=== PATIENT | female | born 1925 | race Caucasian/White ===

== ENCOUNTER 2016-06-24 20:59 | Emergency (ER) | payer MEDICARE ==
[~2016-06-24] VITALS: Ht 160 cm; Wt 63.5 kg
[~2016-06-24 20:59] MED LIST: /FEXO60TA; /PANT40TA; ACET500C; ACETAMINOPHEN; CALCCHW12; CELE20TA; CELE40TA; DIPHENHYDRAMINE; DONNATAL; FLON0.05; Fish Oil; GAS-X; LEVOXYL; LEVOXYL25 MCG; METO10TA2; PAXI10TA; PAXI20TA; PROT20TA11; THERGRAN; VICO5TAB; XANA0.25; XANA0.5T; ZOCO20TA; [UNRECOGNIZED DRUG - OTHER]; [UNRECOGNIZED DRUG - OTHER]
[2016-06-24] MEDS ORDERED: CARV6.25 PO (21:30)
[2016-06-24] MEDS ORDERED: BUSP10TA PO (21:30)
[2016-06-24] MEDS ORDERED: DICYCLOMINE 10 MG CAP PO ONE (22:45)
[2016-06-24 22:59] LABS: BASO % 0.3 % (0.0-1.0); EOS # 0.2 K/mm3 (0.0-0.50); EOS % 3.2 % (0.0-3.0); LARGE UNSTAINED CELL # 0.3 K/mm3 (0.0-0.4); LARGE UNSTAINED CELL % 4.6 % (0.0-4.0); LYMPH # 2.9 K/mm3 (1.5-4.5); MEAN CORPUSCULAR HEMOGLOBIN 32.1 pg (27.0-33.0); MEAN CORPUSCULAR HGB CONC 33.8 g/dl (32.0-36.5); MEAN CORPUSCULAR VOLUME 94.8 fl (80.0-96.0); MONO # 0.5 K/mm3 (0.0-0.8); MONO % 7.5 % (0.0-5.0); NEUTROPHILS # 2.7 K/mm3 (1.8-7.7); NEUTROPHILS % 42.3 % (36.0-66.0); PLATELET COUNT, AUTOMATED 189 k/mm3 (150-450); RED CELL DISTRIBUTION WIDTH 12.7 % (11.5-14.5); WHITE BLOOD COUNT 6.3 K/mm3 (4.0-10.0)
[2016-06-24] MEDS ORDERED: ONDANSETRON 4MG/2ML VIAL (J2405) IV ONE (23:15)
[2016-06-24] MEDS: MORPHINE 4 MG/ML 1ML SYRINGE IV PRN ×2 (23:22→23:49)
[2016-06-24 23:25] LABS: BILIRUBIN,DIRECT 0.2 MG/DL (0.0-0.2); BILIRUBIN,TOTAL 1.2 MG/DL (0.2-1.0); CALCIUM LEVEL 8.8 MG/DL (8.8-10.2); CREATININE FOR GFR 1.02 MG/DL (0.55-1.02); GLOMERULAR FILTRATION RATE 54.3 (>32); POTASSIUM SERUM 4.1 MEQ/L (3.5-5.1)
[2016-06-24] MEDS ORDERED: LORazepam 2 MG/ML VIAL (J2060) IV STA (23:54)
[2016-06-25] MEDS ORDERED: hydrALAZINE INJ 20 MG/ML VIAL IV ONE
[2016-06-25 00:10] VITALS: BP 220/95
[2016-06-25] MEDS ORDERED: GASTROGRAFIN SOLUTION 30ML PO ONE (00:10)
[2016-06-25] MEDS ORDERED: GASTROGRAFIN SOLUTION 30ML (Q9963) PO ONE (00:40)
[2016-06-25] MEDS ORDERED: ISOVUE-370 76% 100ML VIAL (Q9967) As Ordered ONE (01:36)
--- NOTE | 2016-06-25 02:30 | REPUSA ---
CLINICAL HISTORY: Abdominal pain. TECHNIQUE: Multiple axial, sagittal and coronal CT images were obtained through the abdomen and pelvi s after administration of oral and intravenous contrast material. COMMENTS: The liver is of uniform attenuation without mass or defect. There is moderate biliary ductal dilatati on. The common bile duct measures 1.4 cm. The spleen is normal. The gallbladder is surgically absent. The pancreas is of normal contour and attenuation characteristics. There is no evidence of adrenal m ass. Bilateral simple renal cysts with the largest measuring 5.3 cm on the right side. Thickening of the d istal aspect of the gastric body. Both kidneys demonstrate prompt and equal nephrograms. The kidneys are normal in size, shape and conf iguration. There is no evidence of renal or ureteral mass. No renal or ureteral calculi are identifie d. There is no hydroureter or hydronephrosis. No evidence for appendicitis. There is multifocal colonic wall thickening. Chronic diverticulosis. L arge bowel fecal stasis. No evidence for small or large bowel obstruction. There is no evidence of ab dominal ascites or lymphadenopathy. Mildly prominent appendix without associated inflammatory changes . There is no evidence of intrinsic or extrinsic bladder mass. There is no pelvic ascites or lymphadeno caitlin. Distended bladder. Images of the lung bases show no evidence of pleural or parenchymal mass. There are no pleural effusi ons. The bony structures are free of lytic or blastic lesions. Multilevel degenerative changes are seen in volving the thoracolumbar spine. Scattered calcifications are seen involving the aorta and major bran ches compatible with atherosclerosis. IMPRESSION: Prior cholecystectomy. Dilated biliary tree. Colonic diverticulosis. Multifocal thickening of the colon. Underdistention, spasm versus mild colitis. Distended urinary bladder. Thickening of the gastric body and the gastric antrum. Underdistention, spasm versus mild gastritis. Thank you for your kind referral of this patient.
[2016-06-25 03:34] VITALS: BP 149/70
== END 2016-06-25 03:52 | disposition home or self-care (01) ==
LOC: M ED 23:23
DX: R10.9 Unspecified abdominal pain (principal); K57.90 Diverticulosis of intestine, part unspecified, without perforation or abscess without bleeding; Z79.899 Other long term (current) drug therapy; Z88.8 Allergy status to other drugs, medicaments and biological substances; Z88.0 Allergy status to penicillin
CPT/HCPCS: 74177; 80048; 80076; 81001; 83690; 85025; 87086; 93041; 96374; 96375; 99284; J2060; J2405; Q9963; Q9967